=== PATIENT | female | born 1985 | race Caucasian/White ===

== ENCOUNTER 2023-08-27 18:25 | Emergency (ER) | payer SELFPAY ==
[2023-08-27 18:37] VITALS: BP 149/86; PULSE 85; RESP 16; TEMP 37.4; O2SAT 99
--- NOTE | 2023-08-27 18:42 | ED.NAVMDI ---
HPI - Nausea/Vomiting/Diarrhea General Chief complaint: Nausea/Vomiting/Diarrhea Stated complaint: Vomiting/Bodyaches Time Seen by Provider: 08/27/23 18:57 Source: patient and RN notes reviewed Mode of arrival: ambulatory Limitations: no limitations History of Present Illness HPI Narrative: 38-year-old female presents concern for 1 day history of vomiting, body aches, nasal congestion, rhinorrhea, diarrhea, chills, fever. Reports symptoms started this morning. Reports she has taken ibuprofen. She reports other members of her family have similar symptoms. MD elicited complaint: nausea and vomiting Related Data Allergies Allergy/AdvReac Type Severity Reaction Status Date / Time No Known Allergies Allergy Verified 08/27/23 18:55 Review of Systems Review of Systems: CONSTITUTIONAL: Reports malaise, chills, fever. ENT: Reports rhinorrhea, congestion. Denies sinus pain, otalgia or sore throat. CARDIOVASCULAR: Denies chest pain, palpitations, or edema. RESPIRATORY: Reports cough. Denies dyspnea. GASTROINTESTINAL: Denies abdominal pain, bloody, or mucous stools. Reports nausea vomiting and diarrhea GENITOURINARY: Denies dysuria or hematuria. MUSCULOSKELETAL: Reports myalgia. NEUROLOGIC: Reports headache. All systems reviewed & are unremarkable except as noted in HPI and below PMFSH Comments At time of signature, agree with nursing past medical, surgical, social and family history. There is no relevant family history pertinent to the presenting complaint Exam Narrative: GENERAL: Well-appearing, well-nourished, and in no acute distress. HEAD: Normocephalic, atraumatic. EYES: PERRLA, conjunctivae clear, and EOMI. ENT: Nares clear, turbinates pink, no rhinorrhea or epistaxis. Mucous membranes moist. Oropharynx without edema, erythema, or lesions. Tonsils not enlarged and without exudate. NECK: Supple. No lymphadenopathy CHEST: Speaks in full sentences. No respiratory distress. HEART: Regular rate and rhythm. ABDOMEN: Soft, flat, nondistended, nontender. No guarding, rebound tenderness, or rigidity. No pulsatile masses. Bowel sounds present in all four quadrants. No organomegaly. Negative Torres?s sign. No periumbilical tenderness. No Supra public tenderness or distension. Good femoral pulses bilaterally. No hernia noted. No scars or surface trauma. SKIN: Warm, dry, no rash. NEURO: Alert and oriented x3. PSYCH: Normal mood and affect Course Course Emergency Course: Patient is aware of diagnosis, understands and agrees to treatment plan. Anticipatory guidance given. Patient agrees to follow-up as directed and is aware of reasons to seek care at the emergency department. Portions of this record may have been created with voice recognition software Level of Care: Express Care Visit Vital Signs Vital signs: Vital Signs Temperature 99.3 F 08/27/23 18:37 Pulse Rate 85 08/27/23 18:37 Respiratory Rate 16 08/27/23 18:37 Blood Pressure 149/86 H 08/27/23 18:37 Pulse Oximetry 99 08/27/23 18:37 Oxygen Delivery Room Air 08/27/23 18:37 Temperature 99.3 F 08/27/23 18:37 Pulse Rate 85 08/27/23 18:37 Respiratory Rate 16 08/27/23 18:37 Blood Pressure 149/86 H 08/27/23 18:37 Pulse Oximetry 99 08/27/23 18:37 Oxygen Delivery Room Air 08/27/23 18:37 Reviewed. MDM - Nausea/Vomiting/Diarrhea MDM Narrative Medical decision making narrative: No evidence of pancreatitis, AAA, cholecystitis, choledocholithiasis, cholangitis, mesenteric ischemia, small bowel obstruction, diverticulitis, colitis, appendicitis, or pelvic etiology such as ovarian/testicular torsion, TOA, or ectopic . Patient has no history of peptic ulcer, H. pylori, chronic aspirin NSAID or corticosteroid use, chronic alcohol use, no history of inflammatory bowel disease, no history of active abdominal infection or malignancy. Patient has no history of hernia or intra-abdominal surgeries, patient denies absenc
== END 2023-08-27 19:11 | disposition home or self-care (01) ==
PROVIDERS: Emergency Provider Nurse Practitioner
DX: B34.9 Viral infection, unspecified (principal); Z20.822 Contact with and (suspected) exposure to COVID-19
CPT/HCPCS: 87081; 87426; 87804; 87880; 99213; C9803; G0463

== ENCOUNTER 2023-09-20 08:13 | Emergency (ER) | payer SELFPAY ==
--- NOTE | ~2023-09-20 | CT_ITS ---
EXAMINATION: CT lumbar spine wo con DATE: 09/20/2023 10:30 INDICATION: Low back pain. TECHNIQUE: Computed tomography (CT) of the lumbar spine was performed without intravenous contrast. A utomated exposure control and iterative reconstruction technique were employed. The dose-length produ ct was 679.06 mGy-cm. COMPARISON: None FINDINGS: There is 3 degrees levocurvature of lumbar spine. Vertebral body heights are normal. There is mildly decreased disc height at L3-L4 and moderately decreased disc height at L5-S1. The following disc levels are specifically discussed: L1-L2: The disc does not extend beyond the endplate margin. There is mild bilateral facet joint osteo arthritis. There is no neural foraminal stenosis. There is no central canal stenosis. L2-L3: The disc does not extend beyond the endplate margin. There is mild bilateral facet joint osteo arthritis. There is no neural foraminal stenosis. There is no central canal stenosis. L3-L4: The disc is bulging. There is mild bilateral facet joint osteoarthritis. There is mild bilater al neural foraminal stenosis. There is mild central canal stenosis. L4-L5: The disc is bulging. There is mild bilateral facet joint osteoarthritis. There is moderate rig ht and mild left neural foraminal stenosis. There is mild central canal stenosis. L5-S1: The disc is bulging. There is moderate bilateral facet joint osteoarthritis. There is mild rig ht and moderate left neural foraminal stenosis. There is mild central canal stenosis. IMPRESSION: 1. Moderate lower lumbar spondylosis. Reviewed, dictated and finalized at location [facility]
[2023-09-20 08:15] VITALS: BP 150/96; PULSE 78; RESP 18; TEMP 36.2; O2SAT 100
--- NOTE | 2023-09-20 09:54 | ED.GENADULT ---
HPI - General Adult General Chief complaint: Back Pain/Injury Stated complaint: back pain Time Seen by Provider: 09/20/23 09:40 History of Present Illness HPI narrative: Guadalupe Sanchze is a 38 y/o female who presents with repots of having mid lower back pain that started yesteday and today pain has moved to to her right lower back/ right hip area moving down her right leg. She reports she has a hx of sciatica pain before this sort of feels the same/ denies any known trauma/ injury or known triggers that caused her pain to start Denies changes to urine/ denies fever/chills/ no flank pain She reports some movements make her pain better and some movements make her pain worse. Denies taking any medications for pain today. Related Data Allergies Allergy/AdvReac Type Severity Reaction Status Date / Time No Known Allergies Allergy Verified 08/27/23 18:55 Review of Systems Review of Systems: CONSTITUTIONAL: Denies fever, chills, or sweats. EYES: Denies visual changes, redness, or discharge. ENT: Denies rhinorrhea, congestion, sore throat, or otalgia. CARDIOVASCULAR: Denies chest pain, palpitations, or edema. RESPIRATORY: Denies cough or dyspnea. GASTROINTESTINAL: Denies abdominal pain, nausea, vomiting, or diarrhea. GENITOURINARY: Denies dysuria or hematuria. SKIN: Denies rash or itching. MUSCULOSKELETAL: Reports lower back pain that moves around to her right hip down her right leg that started yesterday NEUROLOGIC: Denies headache, numbness, dizziness, or weakness. PSYCHIATRIC: Denies anxiety or depression. Exam Narrative: GENERAL: Well-appearing, well-nourished, and in no acute distress. HEAD: Normocephalic, atraumatic. EYES: PERRLA and EOMI. ENT: Nares clear, no rhinorrhea or epistaxis. Mucous membranes moist. Oropharynx without tonsillar hypertrophy exudate or other lesions. NECK: Supple. No adenopathy or masses. No carotid bruits or JVD CHEST: Clear to auscultation. No respiratory distress. No wheezes rales or rhonchi HEART: Regular rate and rhythm. No murmur heard. Normal peripheral pulses. ABDOMEN: Soft, nontender, nondistended, normal active bowel sounds. EXTREMITIES: Normal range of motion. No edema. SKIN: Warm, dry, no rash. NEURO: No focal deficits. Alert and oriented x3. PSYCH: Normal mood and affect. Course Vital Signs Vital signs: Vital Signs Temperature 36.2 C L 09/20/23 08:15 Pulse Rate 78 09/20/23 08:15 Respiratory Rate 18 09/20/23 08:15 Blood Pressure 150/96 H 09/20/23 08:15 Pulse Oximetry 100 09/20/23 08:15 Temperature 36.2 C L 09/20/23 08:15 Pulse Rate 78 09/20/23 08:15 Respiratory Rate 18 09/20/23 08:15 Blood Pressure 150/96 H 09/20/23 08:15 Pulse Oximetry 100 09/20/23 08:15 Medical Decision Making MDM Narrative Medical decision making narrative: No cervical / thoracic spinal tenderness noted with palpation Lumbar spinal tenderness with palpation No saddle paraesthesia/ No loss of bowel or bladder No fever/chills/ no flank pain No changes with urination / Concern for back spasm/ lumbago/ sciatica/ ureterolithiasis CT of lumbar spine noted to have bulging discs/ urine is negative for any blood/ infection Patient treated for her pain while here. Patient - re-evaluated and pt reports her pain is improved / and feels ready to be d/c home Updated pt on ct results and plan of care and pt verbalizes understanding and agreement. Medical Records Medical records reviewed: Yes I reviewed the external patient's medical records. Vital Signs Vital Signs: Vital Signs Temperature 36.2 C L 09/20/23 08:15 Pulse Rate 78 09/20/23 08:15 Respiratory Rate 18 09/20/23 08:15 Blood Pressure 150/96 H 09/20/23 08:15 Pulse Oximetry 100 09/20/23 08:15 Temperature 36.2 C L 09/20/23 08:15 Pulse Rate 78 09/20/23 08:15 Respiratory Rate 18 09/20/23 08:15 Blood Pressure 150/96 H 09/20/23 08:15 Pulse Oximetry 100 09/20/23 08:1
[2023-09-20] MEDS: HYDROcodone/acetaminophen (*CRX) 5-325 MG TABLET 1 TAB PO (10:12)
[2023-09-20] MEDS: CYCLOBENZAPRINE HCL 10 MG TABLET PO (10:12)
[2023-09-20] MEDS: KETOROLAC 30 MG/ML VIAL (*BKC) IM (10:12)
[2023-09-20] MEDS: LIDOCAINE 5% PATCH 1 PATCH TRANSDERM (10:13)
[2023-09-20 10:40] LABS: Appearance Urine Clear (Clear); Bilirubin Urine Negative (Negative); Blood Urine Negative (Negative); Color Urine Yellow (Yellow); Glucose Urine UA Negative (Negative); Ketones Urine Negative (Negative); Leukocyte Esterase Ur Negative LEU/UL (Negative); Nitrate Urine Negative (Negative); Protein Urine Negative (Negative); Specific Grav Ur 1.002 (1.001-1.035); Urobilinogen Urine 0.2 mg/dL (<2.0); pH Urine 6.5 (5.0-9.0)
[2023-09-20 11:10] LABS: Add Urine Microscopic? NO
== END 2023-09-20 12:25 | disposition home or self-care (01) ==
PROVIDERS: Emergency Provider Nurse Practitioner Family
DX: S39.012A Strain of muscle, fascia and tendon of lower back, initial encounter (principal); M54.31 Sciatica, right side; X58.XXXA Exposure to other specified factors, initial encounter
CPT/HCPCS: 72131; 81003; 96372; 99284; A9270; J1885

== ENCOUNTER 2023-09-21 13:51 | Emergency (ER) | payer SELFPAY ==
[2023-09-21 13:59] VITALS: BP 120/59; PULSE 78; RESP 18; TEMP 36.5; O2SAT 100
--- NOTE | 2023-09-21 14:29 | ED.BACK ---
HPI - Back Pain/Injury General Chief Complaint: Back Pain/Injury Stated Complaint: Back Pain Time Seen by Provider: 09/21/23 14:13 Source: patient, RN notes reviewed and old records reviewed Mode of arrival: ambulatory Limitations: no limitations History of Present Illness HPI Narrative: Patient presents today with a 2 day history of right-sided low back pain. Denies any known injury. Pain radiates down her right leg with some tingling. Denies loss of bowel or bladder control, numbness or tingling to the genitalia. She currently rates her pain 10 and has been taking ibuprofen without much relief. Patient was seen in the ER yesterday where workup was done. She received a CT scan of her lumbar spine which showed moderate lower lumbar spondylosis. Prescriptions for Flexeril, lidocaine patches, and approximate sent to the pharmacy, but she states she has not picked them up due to no insurance. She left work again today due to pain and is requesting work note. Related Data Allergies Allergy/AdvReac Type Severity Reaction Status Date / Time No Known Allergies Allergy Verified 09/21/23 14:05 Review of Systems Review of Systems: CONSTITUTIONAL: Denies body aches, fever, chills, or sweats. EYES: Denies visual changes, redness, or discharge. ENT: Denies rhinorrhea, congestion, sore throat, or otalgia. CARDIOVASCULAR: Denies chest pain, palpitations, or edema. RESPIRATORY: Denies cough or dyspnea. GASTROINTESTINAL: Denies abdominal pain, nausea, vomiting, or diarrhea. GENITOURINARY: Denies dysuria or hematuria. SKIN: Denies rash, itching, or wounds. MUSCULOSKELETAL: Denies joint pain, or myalgia.+ back pain NEUROLOGIC: Denies headache, numbness, or weakness.+ tingling in the right leg PSYCH: Denies depression or anxiety. PMFSH Comments At time of signature, I have reviewed and agree with nursing past medical, surgical, social and family history unless otherwise noted. Please see nursing chart for further information. There is no relevant family history pertinent to the presenting complaint Exam Narrative: GENERAL: Well-appearing, well-nourished, and in no acute distress. HEAD: Normocephalic, atraumatic. EYES: EOMI. No redness or drainage. Conjunctivae normal. ENT: Mucous membranes pink and moist. NECK: Normal AROM. CHEST: No respiratory distress. MUSCULOSKELETAL: Tenderness of the lower lumbar spine extending to the right buttock and hip. Distal sensation intact. Capillary refill normal. Saddle sensation intact. Full range of motion of both legs. EXTREMITIES: Normal range of motion. No edema. SKIN: Warm, dry, no rash. Capillary refill normal. Normal skin turgor. NEURO: No focal deficits. Alert and oriented x3. Gait steady. PSYCH: Normal affect. No signs of depression or anxiety. Course Course Level of Care: Express Care Visit Vital Signs Vital signs: Vital Signs Temperature 97.7 F 09/21/23 13:59 Pulse Rate 78 09/21/23 13:59 Respiratory Rate 18 09/21/23 13:59 Blood Pressure 120/59 L 09/21/23 13:59 Pulse Oximetry 100 09/21/23 13:59 Oxygen Delivery Room Air 09/21/23 13:59 Temperature 97.7 F 09/21/23 13:59 Pulse Rate 78 09/21/23 13:59 Respiratory Rate 18 09/21/23 13:59 Blood Pressure 120/59 L 09/21/23 13:59 Pulse Oximetry 100 09/21/23 13:59 Oxygen Delivery Room Air 09/21/23 13:59 Reviewed MDM - Back Pain/Injury MDM Narrative Medical decision making narrative: Will provide patient with a work note for today and tomorrow. Discussed just getting the Flexeril filled from the pharmacy. Provided her with a good Rx card. Patient agrees with plan. Anticipatory guidance given. Differential Diagnosis Differential diagnosis: Likely lumbar radiculopathy, sciatica and strain of lumbar region Critical Care Time Critical Care Time Critical Care Time: No Discharge Plan Discharge Clinical Impression: Low back pain Qualifiers: Chronicity: acute Back gumaro
== END 2023-09-21 14:40 | disposition home or self-care (01) ==
PROVIDERS: Emergency Provider Nurse Practitioner
DX: M54.41 Lumbago with sciatica, right side (principal)
CPT/HCPCS: 99211; G0463

== ENCOUNTER 2023-10-01 16:23 | Emergency (ER) | payer SELFPAY ==
[2023-10-01 16:45] VITALS: BP 141/84; PULSE 95; RESP 18; TEMP 36.2; O2SAT 100
--- NOTE | 2023-10-01 19:58 | ED.BACK ---
HPI - Back Pain/Injury General Chief Complaint: Back Pain/Injury Stated Complaint: back pain Time Seen by Provider: 10/01/23 19:28 History of Present Illness HPI Narrative: The patient is a 38-year-old female presenting with lower back pain. Patient states that for the last several weeks she has had right-sided lower back pain that radiates down her right leg. She had a CT several weeks ago that showed bulging discs. She has been prescribed Flexeril which has not been helping with the pain. States that the pain has persisted and has become more severe. States that the pain goes down her right leg as well as some tingling down her right leg. No weakness or numbness. No saddle anesthesia, loss of control of bladder or bowel function, fevers. No IV drug use. No recent injuries. No further complaints. Related Data Allergies Allergy/AdvReac Type Severity Reaction Status Date / Time No Known Allergies Allergy Verified 10/09/23 11:37 Review of Systems Review of Systems: All systems reviewed & are unremarkable except as noted in HPI and below Exam Narrative: GENERAL: Well-appearing, in no acute distress, pleasant cooperative HEAD: Normocephalic, atraumatic. EYES: PERRLA and EOMI. ENT: grossly unremarkable NECK: Supple. CHEST: No respiratory distress. HEART: Regular rate and rhythm. Normal peripheral pulses. EXTREMITIES: Normal range of motion. BACK: lower lumbar tenderness extending into right buttocks SKIN: Warm, dry, no rash. NEURO: Alert and oriented x3. 5/5 strength in bilateral lower extremities, no sensory deficits PSYCH: Normal mood and affect. Course Vital Signs Vital signs: Vital Signs Temperature 97.2 F L 10/01/23 16:45 Pulse Rate 95 10/01/23 16:45 Respiratory Rate 18 10/01/23 16:45 Blood Pressure 141/84 H 10/01/23 16:45 Pulse Oximetry 100 10/01/23 16:45 Temperature 97.2 F L 10/01/23 16:45 Pulse Rate 90 10/01/23 20:21 Respiratory Rate 15 10/01/23 20:21 Blood Pressure 163/87 H 10/01/23 20:21 Pulse Oximetry 98 10/01/23 20:21 MDM - Back Pain/Injury MDM Narrative Medical decision making narrative: patient is a 38-year-old female presenting with right-sided lower back pain that goes down her right leg. Vitals are stable. Exam remarkable for the above. Neurologically intact. Denies red flag symptoms. Patient states that she has been taking Flexeril as prescribed which has not helped her pain. She has not been given any steroids. States that she has been using ibuprofen with some relief. Will start her on a steroid burst and provided short course of Percocet for severe breakthrough pain. Advised close PCP and neurosurgery follow-up. Strict return precautions given. Patient voiced understanding and is agreeable with plan. Discharged in stable condition. Differential Diagnosis Differential diagnosis: Likely lumbar radiculopathy, sciatica and strain of lumbar region Medical Records Attestation: I reviewed the patient's medical records. Critical Care Time Critical Care Time Critical Care Time: No Discharge Plan Discharge Clinical Impression: Sciatica Patient Disposition: Home, Self-Care Condition: Stable Instructions: Antibiotic Form, Sciatica (ED) Additional Instructions: Please take the steroids and ibuprofen as prescribed. You may use the Percocet for severe breakthrough pain. Please follow-up with primary care and neurosurgery with the numbers below. If your pain suddenly worsens, you develop fevers, leg weakness, loss of control of your bladder or bowels, or other concerning symptoms arise, please return to the ER. Follow-up/Referrals: Nabeel Pena MD [Physician] - Jude Dye MD [Physician] -
[2023-10-01] MEDS: oxyCODONE/ACETAMINOPHEN (*CRX) 5-325 MG TABLET 1 TABLET PO (20:18)
[2023-10-01] MEDS: predniSONE 20 MG TABLET 40 MG PO (20:19)
[2023-10-01 20:21] VITALS: BP 163/87; PULSE 90; RESP 15; O2SAT 98
== END 2023-10-01 20:24 | disposition home or self-care (01) ==
PROVIDERS: Emergency Provider Emergency Medicine
DX: M54.41 Lumbago with sciatica, right side (principal)
CPT/HCPCS: 99283; A9270; J7512

== ENCOUNTER 2023-10-09 10:38 | Emergency (ER) | payer SELFPAY ==
[2023-10-09 10:51] VITALS: BP 152/90; PULSE 70; RESP 16; TEMP 36.5; O2SAT 99
--- NOTE | 2023-10-09 11:42 | ED.URI ---
HPI - URI/Sore Throat General Chief Complaint: Upper Respiratory Infection Stated Complaint: stuffy nose, no taste or smell Time Seen by Provider: 10/09/23 11:42 Source: patient Mode of arrival: ambulatory Limitations: no limitations History of Present Illness HPI Narrative: 38-year-old female presents with complaint of cough, nasal congestion, headaches, fatigue, body aches, chills, sore throat starting yesterday. Afebrile. Taking DayQuil to treat symptoms. Denies chest pain and shortness of breath. Patient smokes a pack a day. Reports loss of smell and taste. No sick contacts. All systems reviewed and negative except as noted above. Related Data Allergies Allergy/AdvReac Type Severity Reaction Status Date / Time No Known Allergies Allergy Verified 10/09/23 11:37 Review of Systems Review of Systems: CONSTITUTIONAL: Denies fever, chills, or sweats. reports fatigue. EYES: Denies visual changes, redness, or discharge. ENT: reports rhinorrhea, congestion, sore throat. Denies otalgia. CARDIOVASCULAR: Denies chest pain, palpitations, or edema. RESPIRATORY: Reports cough. Denies dyspnea. GASTROINTESTINAL: Denies abdominal pain, nausea, vomiting, or diarrhea. GENITOURINARY: Denies dysuria or hematuria. SKIN: Denies rash or itching. MUSCULOSKELETAL: Denies back pain, joint pain, or myalgia. NEUROLOGIC: Reports headache. Denies numbness, or weakness. PSYCHIATRIC: Denies anxiety or depression. All other systems reviewed are negative, except as documented in HPI. PMFSH Comments At time of signature, agree with nursing past medical, surgical, social and family history. There is no relevant family history pertinent to the presenting complaint. Exam Narrative: GENERAL: This is a well-nourished, well-developed patient, patient ill-appearing but in no acute distress. HEAD: normocephalic, atraumatic. EYES: PERRL. Sclera clear/white. Vision is grossly intact. EARS: External ears normal, auditory canals clear and without drainage, TMs normal without perforation. Hearing grossly intact. NOSE: External nose normal with Clear nasal drainage, mild congestion. THROAT: Mucous membranes moist, Mild erythema to posterior pharynx without swelling or exudates. NECK: Neck supple, non-tender without lymphadenopathy, masses or thyromegaly. CARDIOVASCULAR: Regular rate and rhythm without murmurs, gallops, or rubs. RESPIRATORY: Clear to auscultation. Breath sounds equal bilaterally. No wheezes, rales, or rhonchi. SKIN: warm, Dry, intact with no suspicious lesions or rash, good texture and turgor. NEURO: awake, alert, and oriented to person, place and time. There were no obvious focal neurologic abnormalities. EXTREMITIES: No joint tenderness, effusion, or edema noted. Course Course Level of Care: Express Care Visit Vital Signs Vital signs: Vital Signs Temperature 36.5 C 10/09/23 10:51 Pulse Rate 70 10/09/23 10:51 Respiratory Rate 16 10/09/23 10:51 Blood Pressure 152/90 H 10/09/23 10:51 Pulse Oximetry 99 10/09/23 10:51 Oxygen Delivery Room Air 10/09/23 10:51 Temperature 36.5 C 10/09/23 10:51 Pulse Rate 70 10/09/23 10:51 Respiratory Rate 16 10/09/23 10:51 Blood Pressure 152/90 H 10/09/23 10:51 Pulse Oximetry 99 10/09/23 10:51 Oxygen Delivery Room Air 10/09/23 10:51 Reviewed MDM - URI/Sore Throat MDM Narrative Medical decision making narrative: Patient is aware of diagnosis, understands and agrees to treatment plan. Anticipatory guidance given. Patient agrees to follow-up as directed and is aware of reasons to seek care at the emergency department. Portions of this record may have been created with voice recognition software negative COVID, influenza and strep test. Patient states I knew that it was viral I just needed testing and a work note because my girlfriend has a decreased immune system . Recommend patient taking [id number] medications to treat her
== END 2023-10-09 12:53 | disposition home or self-care (01) ==
PROVIDERS: Emergency Provider Nurse Practitioner Family
DX: J06.9 Acute upper respiratory infection, unspecified (principal); R05.9 Cough, unspecified; Z20.822 Contact with and (suspected) exposure to COVID-19; F17.200 Nicotine dependence, unspecified, uncomplicated; E28.2 Polycystic ovarian syndrome
CPT/HCPCS: 87081; 87426; 87804; 87880; 99213; C9803; G0463

== ENCOUNTER 2023-12-06 09:52 | Emergency (ER) | payer SELFPAY ==
--- NOTE | ~2023-12-06 | XR_ITS ---
EXAMINATION: 1. XR wrist RT min 3V 2. XR hand RT min 3V DATE: 12/06/2023 10:34 INDICATION: Right wrist injury and pain. TECHNIQUE: 5 views of right wrist were obtained. COMPARISON: None. FINDINGS: RIGHT WRIST: Bone alignment is normal. There is heterotopic ossification adjacent to pisiform. Joint spaces are normal. RIGHT HAND: Bone alignment is normal. There is heterotopic ossification adjacent to pisiform. 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 IMPRESSION: 1. Heterotopic ossification adjacent to pisiform, which may be age-indeterminate fracture fragments o r chronic dystrophic calcifications. Reviewed, dictated and finalized at location A. [employer] IMPRESSION: 1. Heterotopic ossification adjacent to pisiform, which may be age-indeterminat e fracture fragments or chronic dystrophic calcifications.
[2023-12-06 09:58] VITALS: BP 144/108; PULSE 72; RESP 16; TEMP 36.6; O2SAT 100
--- NOTE | 2023-12-06 10:21 | ED.UPPEXIN ---
HPI - Extremity Injury (Upper) General Chief Complaint: Extremity Injury, Upper Stated Complaint: right hand pain x 1 month Time Seen by Provider: 12/06/23 09:56 Source: patient Mode of arrival: ambulatory Limitations: no limitations History of Present Illness HPI narrative: Patient is a 38-year-old female who presents to ED with report of right hand pain. Patient reports she sustained an injury 1 month ago in which she karate-chopped a metal sink and concrete wall with her R hand. She was seen in an outside ED afterwards and had negative x-rays. Patient complains of persistent pain in her right dorsal hand, right lateral wrist, radiating up her arm. Has been taking Tylenol for the pain. Denies any new injury. Denies significant swelling. Denies numbness. Related Data Allergies Allergy/AdvReac Type Severity Reaction Status Date / Time No Known Allergies Allergy Verified 10/09/23 11:37 Review of Systems Review of Systems: CONSTITUTIONAL: Denies fever, chills, or sweats. MUSCULOSKELETAL: See HPI. NEUROLOGIC: Denies headache, dizziness, numbness, or weakness. All systems reviewed & are unremarkable except as noted in HPI and below Exam Narrative: GENERAL: Well appearing, obese with BMI of 31.9, non-toxic, in no acute distress. HEAD: Normocephalic, atraumatic. RESPIRATORY: Airway patent, respirations nonlabored. CARDIOVASCULAR: Regular rate and rhythm without murmurs, rubs, or gallops. Radial pulses 2+ MUSCULOSKELETAL: Moves all extremities. No gross deformities. Mild TTP over mid dorsal R hand, over 3rd/4th metacarpals. No significant swelling. No erythema/warmth. Mild TTP over R distal ulna with small area of swelling. No ecchymosis. Sensation intact throughout RUE. SKIN: Warm, dry, normal color. NEURO: A&O X3. Speech clear. Cranial nerves II-XII grossly intact. No ataxic movements. PSYCHIATRIC: Appropriate mood and affect. Normal interaction. Course Vital Signs Vital signs: Vital Signs Temperature 97.8 F 12/06/23 09:58 Pulse Rate 72 12/06/23 09:58 Respiratory Rate 16 12/06/23 09:58 Blood Pressure 144/108 H 12/06/23 09:58 Pulse Oximetry 100 12/06/23 09:58 Oxygen Delivery Room Air 01/30/24 09:58 Temperature 97.8 F 12/06/23 09:58 Pulse Rate 72 12/06/23 09:58 Respiratory Rate 16 12/06/23 09:58 Blood Pressure 144/108 H 12/06/23 09:58 Pulse Oximetry 100 12/06/23 09:58 Oxygen Delivery Room Air 12/06/23 09:58 MDM - Extremity Injury (Upper) MDM Narrative Medical decision making narrative: Patient?s injury is consistent with musculoskeletal etiology. No signs of neurologic or vascular compromise on physical examination. Compartments are soft without signs of compartment syndrome. XR showing possible age-indeterminate fracture of pisiform. This is consistent with patient's tenderness on exam. Given injury occurred > 1 mo ago, will place patient in LUIS E bandage for support and stabilization. Patient is felt to be stable for discharge home and further outpatient management and treatment. Advised to continue anti-inflammatories, RICE therapy, follow up with Hand/Orthopedics for further evaluation. Patient in agreement with plan. Given return precautions. Discharged in stable condition. Medical Records Attestation: I reviewed the patient's medical records. Imaging Data Attestation: I personally reviewed and interpreted this imaging study as follows: Radiologist's impression: ITS Impressions Hand X-Ray 12/06/23 10:37 IMPRESSION: 1. Heterotopic ossification adjacent to pisiform, which may be age-indeterminate fracture fragments or chronic dystrophic calcifications. Wrist X-Ray 12/06/23 10:37 IMPRESSION: 1. Heterotopic ossification adjacent to pisiform, which may be age-indeterminate fracture fragments or chronic dystrophic calcifications. Discharge Plan Discharge Clinical Impression: Sprain and strain of right wrist, Contusion of r
[2023-12-06] MEDS: KETOROLAC 30 MG/ML VIAL (*BKC) IM (10:37)
[2023-12-06 10:49] VITALS: BP 128/68; PULSE 80; RESP 16; TEMP 36.6; O2SAT 100
== END 2023-12-06 10:50 | disposition home or self-care (01) ==
PROVIDERS: Emergency Provider Physician Assistant
DX: S63.501A Unspecified sprain of right wrist, initial encounter (principal); S60.221A Contusion of right hand, initial encounter; W22.09XA Striking against other stationary object, initial encounter
CPT/HCPCS: 73110; 73130; 96372; 99283; J1885

== ENCOUNTER 2024-02-21 12:47 | Emergency (ER) | payer SELFPAY ==
--- NOTE | ~2024-02-21 | XR_ITS ---
EXAMINATION: XR chest 2V 02/21/2024 13:07 INDICATION: Chest pain PROCEDURE: 2 view chest COMPARISON: No prior studies for comparison. FINDINGS: The lungs are clear. The cardiomediastinal silhouette is within normal limits. There are no pleural effusions. There is no pneumothorax suspected. IMPRESSION: 1: NO ACUTE CARDIOPULMONARY DISEASE. Reviewed, dictated and finalized at location B.
[2024-02-21 12:49] VITALS: BP 135/84; PULSE 86; RESP 20; TEMP 36.5; O2SAT 100
--- NOTE | 2024-02-21 12:49 | ECG_ITS ---
SEE SCANNED COPY FOR CONFIRMED REPORT MTDD
[2024-02-21 12:51] VITALS: BP 132/73; PULSE 69; RESP 15; O2SAT 98
[2024-02-21 13:05] LABS: Basophils Percent Auto 0.3 % (0.2-1.2); Eosinophils Absolute Auto 0.1 K/mm3 (0-0.3); Eosinophils Percent Auto 0.7 % (0-4.4); Hematocrit 38.4 % (37.0-47.0); Immature Granulocyte Absolute 0.02 K/mm3 (0.00-0.031); Immature Granulocyte Percent A 0.2 % (0-0.5); Lymphocytes Absolute Auto 2.01 K/mm3 (0.9-3.2); Lymphocytes Percent Auto 22.3 % (18.3-44.2); Mean Corpuscular HGB Conc 33.9 g/dl (32-36); Mean Corpuscular Hemoglobin 31.4 pg (26-34); Mean Corpuscular Volume 92.8 fl (80-100); Mean Platelet Volume 9.3 fl (7.4-10.4); Monocytes Absolute Auto 0.7 K/mm3 (0.1-0.6); Neutrophils Absolute Auto 6.2 K/mm3 (1.3-6.7); Neutrophils Percent Auto 68.5 % (45.5-73.1); Platelet Count Result 242 k/mm3 (150-375); Red Blood Count 4.14 M/mm3 (4.2-5.4); Red Cell Distribution Width 12.3 % (11.5-14.5)
--- NOTE | 2024-02-21 13:15 | PC.NURSE ---
Unable to obtain EKG due to CT taking patient for scan.
[2024-02-21 13:19] LABS: INR 0.9; Prothrombin Time 12.8 Seconds (11.1-14.7)
[2024-02-21 13:21] LABS: Partial Thromboplastin Time 31.1 Seconds (22.3-36.8)
[2024-02-21 13:31] LABS: Troponin I < 0.012 ng/mL (0.000-0.034)
[2024-02-21 13:34] LABS: Alanine Aminotransferase 14 U/L (6-35); Albumin Level 3.9 g/dL (3.5-5.1); Alkaline Phosphatase 59 U/L (38-126); Anion Gap 6 mmol/L (4-12); Aspartate Amino Transferase 22 U/L (14-36); Bilirubin,Total 0.4 mg/dL (0.2-1.3); Blood Urea Nitrogen 23 mg/dL (7-17); Calcium 9.2 mg/dL (8.4-10.2); Carbon Dioxide 23 mmol/L (22-30); Chloride 108 mmol/L (98-107); Estimated Glomerular Filt Rate 55; Glucose 93 mg/dL (65-110); Lipase 186 U/L (23-300); Potassium 4.2 mmol/L (3.4-5.0); Sodium 137 mmol/L (137-145)
[2024-02-21 13:46] LABS: D Dimer < 0.27 ug/mL (<0.48)
[2024-02-21 13:55] VITALS: BP 112/64; PULSE 55; RESP 19; O2SAT 99
[2024-02-21] MEDS: ASPIRIN 81 MG CHEWABLE TABLET 324 MG PO (13:55)
--- NOTE | 2024-02-21 13:56 | ED.CHESTPAIN ---
HPI - Chest Pain General Chief Complaint: Chest Pain Stated Complaint: rib, chest pain Time Seen by Provider: 02/21/24 12:58 History of Present Illness HPI narrative: 38-year-old female presenting to the emergency department for evaluation of left-sided flank and chest wall pain. Patient reports symptoms started this morning. Patient is a smoker does have a longstanding cough. Patient does have history of high blood pressure but isn't take medications for this. Patient denies any prior history of PE or DVT. Patient denies any prior history of MO. Related Data Allergies Allergy/AdvReac Type Severity Reaction Status Date / Time No Known Allergies Allergy Verified 10/09/23 11:37 Review of Systems Review of Systems: All systems reviewed & are unremarkable except as noted in HPI and below Exam Narrative: APPEARANCE: Well appearing, no pain, no distress, well-nourished. HEAD: normocephalic, atraumatic. EYES: PERRLA/EOMI, conjunctivae clear. NOSE: Normal no drainage EARS:TMS clear with good light reflex. THROAT: Pharynx clear, no exudate. NECK: Supple. No adenopathy, no masses. RESPIRATORY: Airway patent, respirations nonlabored. Clear to auscultation bilaterally, no rales, rhonchi, wheezing. CARDIOVASCULAR: Regular rate and rhythm without murmurs rubs or gallops. ABDOMINAL: Soft, nontender, nondistended, normal bowel sounds MUSCULOSKELETAL: Left sided chest wall tenderness to palpation NEURO: Alert. Cranial nerves II through XII intact. Grossly intact SKIN: Warm, dry. Normal Color Course Course Emergency Course: Patient was updated on the results of workup patient was comfortable plan for discharge and close follow-up. Vital Signs Vital signs: Vital Signs Temperature 97.7 F 02/21/24 12:49 Pulse Rate 86 02/21/24 12:49 Respiratory Rate 20 02/21/24 12:49 Blood Pressure 135/84 02/21/24 12:49 Pulse Oximetry 100 02/21/24 12:49 Oxygen Delivery Room Air 02/21/24 12:49 Temperature 97.7 F 02/21/24 12:49 Pulse Rate 75 02/21/24 16:31 Respiratory Rate 19 02/21/24 16:31 Blood Pressure 136/85 02/21/24 16:31 Pulse Oximetry 99 02/21/24 16:31 Oxygen Delivery Room Air 02/21/24 12:49 MDM - Chest Pain MDM Narrative Medical decision making narrative: 38-year-old female presenting to the emergency department for evaluation of left-sided chest wall pain. Patient is afebrile with no leukocytosis and a stable hemoglobin, no acute abnormalities on the CMP patient's lipase and D-dimer were negative. Patient's initial troponin was also negative. Differential Diagnosis Differential diagnosis: Likely fracture of rib, pneumothorax, unstable angina pectoris, atypical chest pain, st elevation myocardial infarction, costochondritis, chest pain and biliary colic Lab Data Attestation: I reviewed the patient's lab results. 02/21/24 12:59 02/21/24 12:59 Labs: Lab Results 02/21/24 02/21/24 Range/Units 12:59 15:55 WBC 9.0 (4.5-10.0) K/mm3 RBC 4.14 L (4.2-5.4) M/mm3 Hgb 13.0 (12.0-15.0) g/dL Hct 38.4 (37.0-47.0) % MCV 92.8 (80-100) fl MCH 31.4 (26-34) pg MCHC 33.9 (32-36) g/dl RDW 12.3 (11.5-14.5) % Plt Count 242 (150-375) k/mm3 MPV 9.3 (7.4-10.4) fl Immature Gran % (Auto) 0.2 (0-0.5) % Neut % (Auto) 68.5 (45.5-73.1) % Lymph % (Auto) 22.3 (18.3-44.2) % Gilmer % (Auto) 8.0 (2.6-8.5) % Eos % (Auto) 0.7 (0-4.4) % Baso % (Auto) 0.3 (0.2-1.2) % Lymph # (Auto) 2.01 (0.9-3.2) K/mm3 Gilmer # (Auto) 0.7 H (0.1-0.6) K/mm3 Eos # (Auto) 0.1 (0-0.3) K/mm3 Baso # (Auto) 0.0 (0.0-0.1) K/mm3 Abs Immat Gran (auto) 0.02 (0.00-0.031) K/mm3 Absolute Neuts (auto) 6.2 (1.3-6.7) K/mm3 Absolute Nucleated RBC 0.000 (0.0-0.012) K/mm3 Nucleated RBC % 0.0 (0.0-0.2) % PT 12.8 (11.1-14.7) Seconds INR 0.9 APTT 31.1 (22.3-36.8) Seconds D-Dimer < 0.27 (<0.48) ug/mL Sodium 137 (13
[2024-02-21 16:05] VITALS: BP 128/75; PULSE 48; RESP 17; O2SAT 99
[2024-02-21 16:16] VITALS: BP 140/82; PULSE 49; RESP 17; O2SAT 99
[2024-02-21 16:21] LABS: Troponin I < 0.012 ng/mL (0.000-0.034)
[2024-02-21 16:31] VITALS: BP 136/85; PULSE 75; RESP 19; O2SAT 99
== END 2024-02-21 17:13 | disposition home or self-care (01) ==
PROVIDERS: Family Medicine; Emergency Provider Emergency Medicine
DX: R07.89 Other chest pain (principal)
CPT/HCPCS: 36415; 71046; 80053; 83690; 84484; 85025; 85380; 85610; 85730; 93005; 99284; A9270